=== PATIENT | female | born 1975 | race Caucasian/White ===

== ENCOUNTER 2017-06-13 08:41 | Day surgery (SDC) | payer OTHER ==
[~2017-06-13] VITALS: Ht 167.6 cm; Wt 54.5 kg
[~2017-06-13 08:41] MED LIST: ALBU8I INH; BACL20TA PO; IBUP800T23 PO
[2017-06-13] MEDS ORDERED: IOHEXOL 300 MG/ML 50 ML BTL (for RAD DIAG) OTHER ONE (08:42)
[2017-06-13 08:59] VITALS: BP 122/72; PULSE 73; RESP 20; TEMP 97.9; O2SAT 99
[2017-06-13] MEDS ORDERED: CETI10CA3 PO (09:14)
[2017-06-13] MEDS ORDERED: BACL10TA PO (09:14)
[2017-06-13] MEDS ORDERED: IBUP1TAB7 PO (09:14)
[2017-06-13 11:40] VITALS: BP 120/57; PULSE 51; RESP 18; O2SAT 96
[2017-06-13 11:55] VITALS: BP 110/65; PULSE 64; RESP 16; O2SAT 97
--- NOTE | 2017-06-13 13:45 | RADRPT ---
EXAM DATE/TIME: 06/13/2017 11:29 [facility] COMPARISON: FISTULAGRAM, June 13, 2017, 10:57. INDICATIONS : Post sinugram to evaluate sinus tract at base of incision, evaluate for sinus tract infection IV CONTRAST: 10 cc Omnipaque 300 (iohexol) IV RADIATION DOSE: 11.21 CTDIvol (mGy) MEDICAL HISTORY : None SURGICAL HISTORY : Thoracic spine surgery ENCOUNTER: Initial ACUITY: 1 day PAIN SCALE: 6/10 LOCATION: Thoracic spine TECHNIQUE: Volumetric scanning of the thoracic spine was performed. Multiplanar reconstructions in the sagittal , coronal and oblique axial planes were performed. Using automated exposure control and adjustment o f the mA and/or kV according to patient size, radiation dose was kept as low as reasonably achievable to obtain optimal diagnostic quality images. DICOM format image data is available electronically fo r review and comparison. FINDINGS: Thoracic spine CT was performed following sinogram injection which was performed under fluoroscopic o bservation in special procedures. The patient has undergone previous parents and right placement with rods extending from the believe is the T4 level down into the lumbar spine. There is slight right co nvex kyphoscoliosis through the region of bienvenido fixation. No evidence of fracture or destructive proces s. The bony canal is widely patent. The contrast injected tracks from the lumbar midline at the inferior aspect of the patient's prior vega rgical incision up into the thoracic region into the left paramedian intramuscular tissues and extend s directly to the post of the second from the top sublaminar hook attached to the left-sided bienvenido at w hat I believe is the T6 level. There is no specific suspicious bony finding at this location and I do not see any extension of injected contrast into the canal. CONCLUSION: Draining sinus tract communicates with previous thoracic fusion hardware as described. Please also re alicia to fistulogram report same date. Blaze Murillo MD on June 13, 2017 at 13:28 Board Certified Radiologist. This report was verified electronically.
--- NOTE | 2017-06-13 13:49 | RADRPT ---
EXAM DATE/TIME: 06/13/2017 10:57 [facility] COMPARISON: No previous studies available for comparison. INDICATIONS : Patient presents with thoracic subcutaneous skin infection in need of contrast injection for further evaluation. MEDICAL HISTORY : Scoliosis DJD SURGICAL HISTORY : Thoracic fusion Hysterectomy ENCOUNTER: Initial ACUITY: 3 months PAIN SCORE: 0/10 LOCATION: N/A FLUORO TIME: 3.9 minutes IMAGE SERIES: 5 CONTRAST: 10 cc Omni 300 TECH NOTE: Patient was transferred post case to CT for further imaging study.ERMA NIEVES MR#:[id number] DOB Exam Dt/Desc: June 13, 2017FISTULAGRAM PROCEDURE : 1. Fistulagram. The risks, benefits and alternatives to the procedure were explained and verbal and written consent w as obtained. The site was prepped in sterile fashion. Full sterile technique was used, including ca p, mask, sterile gloves and gown and a large sterile sheet. Hand hygiene and 2% chlorhexidine and/or betadine/alcohol prep was utilized per protocol for cutaneous antisepsis. The skin and subcutaneous tissues were infiltrated with local anesthetic solution. Under direct fluoroscopic observation, a sinus tract in the lumbar midline at the inferior most aspec t of the patient's previous back incision was injected with Omnipaque-300 contrast. The contrast flow s through a thin cavity up into the thoracic region and terminates at the level of the post of the se cond highest sublaminar hook on the left side. CONCLUSION: Thoracolumbar spine sinus tract communicates to the patient's Daniels bienvenido hardware as described Blaze Murillo MD on June 13, 2017 at 13:45 Board Certified Radiologist. This report was verified electronically.
== END 2017-06-13 12:05 | disposition home or self-care (01) ==
LOC: HRAD 08:41 → HRIP 08:42 → HRAD 12:05
PROVIDERS: ATTEND Orthopaedic Surgery Orthopaedic Surgery of the Spine
DX: L08.9 Local infection of the skin and subcutaneous tissue, unspecified (principal); M41.9 Scoliosis, unspecified; Z98.1 Arthrodesis status; M19.90 Unspecified osteoarthritis, unspecified site
CPT/HCPCS: 20500; 72129; 76080; Q9967

== ENCOUNTER 2017-07-12 08:44 | Inpatient (IN) | payer OTHER ==
[~2017-07-12] VITALS: Ht 167.6 cm; Wt 56.8 kg
[~2017-07-12 08:44] MED LIST changes: -ALBU8I INH; +BACL10TA PO; -BACL20TA PO; +CETI10CA3 PO; +IBUP1TAB7 PO; -IBUP800T23 PO
[2017-07-12] MEDS ORDERED: CHLORHEXIDINE GLUCONATE 2 % 1 PACK (2 CLOTHS) TOPICAL PRN (09:30)
[2017-07-12] MEDS ORDERED: LACTATED RINGER'S 1000 ML IV PRN (09:30)
[2017-07-12] MEDS ORDERED: SODIUM CHLORID 0.9% 500 ML IV PRN (09:30)
[2017-07-12] MEDS ORDERED: CHLORHEXIDINE GLUCONATE 4% SOLN 120 ML BTL TOPICAL SCH (09:30)
[2017-07-12] MEDS ORDERED: POVIDONE IODINE 5% (ANTISEPSIS KIT) 4 APPLICATIONS EACH NARE PRN (09:30)
[2017-07-12] MEDS ORDERED: CEFAZOLIN INJ 2,000 MG in SODIUM CHLORIDE 0.9% INJ 100 ML IV SCH (09:30)
[2017-07-12] MEDS ORDERED: METOPROLOL TARTRATE 25 MG TAB PO PRN (09:30)
[2017-07-12] MEDS ORDERED: GLYCOPYRROLATE 1 MG/5 ML SYRINGE IV PUSH ONE (12:00)
[2017-07-12] MEDS ORDERED: DEXAMETHASONE SOD PHOS 4 MG/ML VIAL IV ONE (12:00)
[2017-07-12] MEDS ORDERED: ROCURONIUM INJ 50 MG/5 ML SYRINGE IV PUSH ONE (12:00)
[2017-07-12] MEDS ORDERED: ONDANSETRON HCL 4 MG/2 ML VIAL IV ONE (12:00)
[2017-07-12] MEDS ORDERED: LIDOCAINE HCL 1% PF 5 ML SYRINGE OTHER ONE (12:00)
[2017-07-12] MEDS ORDERED: NEOSTIGMINE 5 MG/5 ML SYRINGE IV PUSH ONE (12:00)
[2017-07-12] MEDS ORDERED: LACTATED RINGER'S 1000 ML INJ 1,000 ML IV ONE (12:00)
[2017-07-12] MEDS ORDERED: PROPOFOL 200 MG/20 ML AMP IV ONE (12:00)
[2017-07-12] MEDS ORDERED: VANCOMYCIN HCL 1000 MG VIAL ONE (12:45)
[2017-07-12] MEDS ORDERED: GELFOAM SIZE 100 ONE (12:46)
[2017-07-12] MEDS ORDERED: TOBRAMYCIN 1200 MG VIAL (for ortho/sterile core) OTHER ONE (12:46)
[2017-07-12] MEDS ORDERED: GENTAMICIN SULFATE 80 MG/2 ML VIAL ONE (12:46)
[2017-07-12] MEDS ORDERED: THROMBIN (TOPICAL) 5,000 UNIT VIAL ONE (12:46)
[2017-07-12] MEDS ORDERED: ceFAZolin INJ 1,000 MG VIAL ONE (12:46)
[2017-07-12] MEDS ORDERED: MIDAZOLAM HCL 2 MG/2 ML VIAL ONE (15:12)
[2017-07-12] MEDS ORDERED: DO NOT ADM ANY ANTICOAGULANT DRUGS PRN (16:05)
--- NOTE | 2017-07-12 16:06 | PD.OP ---
cc: Mary Sánchez MD Operative Report Date of Surgery: Jul 12, 2017 Preoperative Diagnosis: Infected retained posterior thoracic hardware Postoperative Diagnosis: Same Procedure: 1. Irrigation and debridement posterior thoracic spine 2. Removal of posterior segmental hardware 3. Placement of dissolvable antibiotic beads Anesthesia: Gen. Surgeon: Mary Sánchez Video Production Intern(s): None Operation and Findings: EBL: 300 cc Complications: None Specimens: Multiple cultures sent to microbiology Indications for procedure: Patient is a 42-year-old female who underwent selective posterior thoracic fusion for A obvious approximately 19 years previously. Postoperatively patient did very well without any significant complications. Patient presented to my office probably 1 month ago with a small draining sinus near the inferior aspect of her thoracic incision. An attempt at nonoperative management was made with oral antibiotics and appropriate wound care. Initially, the wound did close however within a week it reopened. Imaging demonstrated connection of the draining sinus with posterior thoracic hardware. Recommendation for removal of posterior thoracic hardware and irrigation and debridement was made to try to eradicate the infection. Risks, benefits, alternatives were discussed. Risks of surgery including but not limited to: Persistent infection, recurrent scoliosis with progression, possible neurologic injury including possible paralysis, spinal fluid leak, possible need for further surgery, and other unforeseen complications were all discussed with the patient. At this time she has consented to the procedure. Description of procedure: Patient was brought back to the operating room and general anesthesia then ensued. Patient was then positioned prone on the operating room table with all bony prominences well-padded. Preoperative antibiosis were held in attempt to obtain intraoperative cultures. Patient was prepped and draped in standard sterile fashion. A timeout was performed to identify correct patient, site, and procedure to be performed. The previous thoracic incision from approximately T4 down to T12 was opened with sharp dissection through the skin and subcutaneous tissue. Electrocautery was used to gain hemostasis. At this time there was a superficial subcutaneous pocket above the level of fascia just to the left side at the caudal aspect of the incision consistent with a draining sinus. This was cultured. The fascia was then split in midline. This revealed a deep pocket of tissue consistent with draining sinus and concern for infection and this tissue was sent for culture along with fluid. Antibiotics were then administered. Careful dissection was performed down to the cross-links both towards the cranial and caudal aspect of the incision. This allowed me to follow the cross-links to the lateral based rods. The fibrous tissue along with the muscle was then elevated to allow exposure of the rods and all of the hooks. The cross-links were then removed. The set screws for the folks were then removed, this included all 6. The rods were then able to be slowly worked cranially and caudally to allow the most cranial and caudal hooks on both sides to be removed. This then allowed the rods to carefully be removed from the remaining folks and cables. The remaining right-sided hooks were then removed. In total, 6 hooks were removed and 2 cross-links and 2 rods. I did discuss with the patient prior to surgery the likelihood that I would leave her sublaminar cables as cutting these and removing them places her at significantly higher risk of dural injury or neurologic injury. I did explain to the patient that this does place her at slightly higher risk of persistent infection, however the risks of removing these appear to outweigh the benefits. At this time, the tissue was curetted to get down to healthy bleeding tissue and rongeur was used to remove the debris. Over 3 L of normal saline laden with gentamicin was used to irrigate the subcutaneous tissue, muscle, fascia and down to bone. Stimulan beads were then created on the back table with the addition of vancomycin and tobramycin powder and allowed to fully cure. After approximately 15 minutes, the beads were hardened and placed into the wound both below the fascia and in the subcutaneous pocket that had been formed from the abscess. A medium Hemovac was then placed. The fascia was then closed with #1 PDS suture. The subcutaneous tissue was then closed with 3-0 PDS suture and the skin closed with nylon suture. Sterile dressings were then applied. Patient was awoken from general anesthesia without complication. Disposition: Patient will be kept overnight to allow cultures to be examined. She will require IV antibiotics for a period of time given the infection she did have. I will ask ID to evaluate the patient and follow cultures with me to help determine appropriate antibiotic management. Mary Sánchez MD Jul 12, 2017 16:06
[2017-07-12] MEDS ORDERED: diphenhydrAMINE HCL 25 MG CAP PO PRN (16:15)
[2017-07-12] MEDS ORDERED: Post-op Orders (for Pharmacy) XX ONE ×2 (16:15)
[2017-07-12] MEDS ORDERED: ONDANSETRON HCL 4 MG/2 ML VIAL IV PUSH PRN (16:15)
[2017-07-12] MEDS ORDERED: oxyCODONE/ACETAMINOPHEN 5 MG/325 MG TAB PO PRN (16:15)
[2017-07-12] MEDS ORDERED: BISACODYL 10 MG SUPP RECTAL PRN (16:15)
[2017-07-12] MEDS ORDERED: SOD PHOSPHATE/SOD BIPHOSPHATE (ADULT) ENEMA 133ML PR PRN (16:15)
[2017-07-12] MEDS ORDERED: Vancomycin Consult Pharmacy 1 EA OTHER SCH (16:15)
[2017-07-12] MEDS ORDERED: SODIUM CHLORIDE 0.9% FLUSH 10 ML FLUSH IV FLUSH PRN (16:15)
[2017-07-12] MEDS ORDERED: *morphine SULFATE 8 MG/ML PERIprocedure ONLY ONE (16:16)
[2017-07-12] MEDS ORDERED: *PROMETHAZINE 25 MG/ML VIAL PERIprocedural use ONLY ONE (16:57)
[2017-07-12 18:00] VITALS: BP 123/58; PULSE 70; RESP 18; TEMP 97.2; O2SAT 98
[2017-07-12] MEDS: oxyCODONE/ACETAMINOPHEN 5 MG/325 MG TAB PO PRN ×2 (18:08→22:45)
[2017-07-12] MEDS ORDERED: MORPHINE SULFATE 4 MG/ML INJ ONE (19:18)
[2017-07-12 19:30] VITALS: BP 106/68; PULSE 64; RESP 16; TEMP 97.3; O2SAT 98
--- NOTE | 2017-07-12 20:07 | RADRPT ---
EXAM DATE/TIME: 07/12/2017 14:57 [facility] COMPARISON: SPINE THORACIC AP/LAT/SW (3VW), September 07, 2009, 0:48. INDICATIONS : Hardware removal of the thoracic spine. MEDICAL HISTORY : None. SURGICAL HISTORY : Daniels bienvenido. ENCOUNTER: Initial ACUITY: 1 day PAIN SCORE: Non-responsive. LOCATION: Thoracic spine. FINDINGS: The previously seen stabilization rods have been removed. There are 3 cerclage wires seen at the lowe r lateral thoracic spine that are still seen. CONCLUSION: Status post removal of the long stabilization rods. Blaze Amaya MD on July 12, 2017 at 20:03 Board Certified Radiologist. This report was verified electronically.
[2017-07-12] MEDS: SODIUM CHLORIDE 0.9% FLUSH 10 ML FLUSH IV FLUSH SCH (20:31)
[2017-07-12] MEDS: MORPHINE SULFATE 2 MG/ML INJ IV PUSH PRN ×2 (20:31→23:57)
[2017-07-12] MEDS ORDERED: SODIUM CHLORIDE 0.9% FLUSH 10 ML FLUSH IV FLUSH SCH (21:00)
[2017-07-12] MEDS: CYCLOBENZAPRINE HCL 10 MG TAB PO PRN (22:45)
[2017-07-13] VITALS (7 sets, daily range): BP systolic 96–117; BP diastolic 51–58; PULSE 52–80; RESP 16–18; TEMP 97.7–98.6; O2SAT 96–99
[2017-07-13] MEDS ORDERED: VANCOMYCIN INJ 1,000 MG in SODIUM CHLOR 0.9% 250 ML INJ 250 ML IV SCH (02:00)
[2017-07-13] MEDS: oxyCODONE/ACETAMINOPHEN 5 MG/325 MG TAB PO PRN ×5 (02:48→21:53)
[2017-07-13] MEDS: MORPHINE SULFATE 2 MG/ML INJ IV PUSH PRN ×6 (04:30→21:01)
[2017-07-13 07:24] LABS: HEMATOCRIT 36.9 % (35.0-46.0); HEMOGLOBIN 12.2 GM/DL (11.6-15.3)
--- NOTE | 2017-07-13 07:45 | PD.ORT.PN ---
Subjective Subjective Remarks Patient resting currently this morning. It reports back pain and occasional muscle spasms. Reports pain is relatively well controlled with Percocet and Flexeril Objective Vitals Vital Signs Date Time Temp Pulse Resp B/P (MAP) Pulse Ox O2 Delivery O2 Flow Rate FiO2 07/13/17 05:10 98.2 53 16 106/54 (71) 98 07/13/17 00:35 97.7 72 16 96/54 (68) 99 07/12/17 19:30 97.3 64 16 106/68 (81) 98 07/12/17 18:00 97.2 70 18 123/58 (79) 98 07/12/17 17:30 97.9 55 12 112/56 (74) 100 Nasal Cannula 2 07/12/17 17:15 82 16 113/56 (75) 95 07/12/17 17:00 71 19 114/57 (76) 100 07/12/17 16:45 48 13 120/59 (79) 100 07/12/17 16:30 53 16 114/57 (76) 99 07/12/17 16:15 67 16 129/67 (87) 100 Nasal Cannula 2 07/12/17 16:06 97.6 78 16 120/69 (86) 100 Nasal Cannula 2 07/12/17 09:45 98.5 54 20 122/66 (84) 98 I/O 07/12/17 07/12/17 07/12/17 07/13/17 07/13/17 07/13/17 07:00 15:00 23:00 07:00 15:00 23:00 Intake Total 1500 ml 720 ml Output Total 420 ml 10 ml Balance 1080 ml 710 ml Intake Oral 720 ml Other 1500 ml Output Drainage Total 120 ml 10 ml Estimated Blood Loss 300 ml # Voids 5 # Bowel Movements 0 Result Diagram: 07/13/17 0623 Objective Remarks awake, alert, no acute distress Thoracic spine: Dressing in place without any significant drainage. Drain remains intact. Bilateral lower extremity is: 5 out of 5 strength throughout. Sensation intact. Brisk cap refill. Patient has been out of bed ambulating to the restroom Assessment & Plan Assessment and Plan 42-year-old female postop day 1 status post irrigation and debridement with removal of posterior thoracic hardware for infection 1. Encourage mobilization and out of bed as tolerated. Patient does not require bracing. Avoid significant bending, lifting or twisting 2. Intraoperative cultures pending. Infectious disease has been consult. Patient will require antibiotic management for infection. 3. Physical therapy for mobilization 4. Patient will likely be able to go home with home health pending cultures and antibiotic determination. Mary Sánchez MD Jul 13, 2017 07:45
[2017-07-13 07:48] LABS: CREATININE 0.53 MG/DL (0.50-1.00)
[2017-07-13] MEDS: SODIUM CHLORIDE 0.9% FLUSH 10 ML FLUSH IV FLUSH SCH ×2 (08:01→21:00)
[2017-07-13] MEDS: CYCLOBENZAPRINE HCL 10 MG TAB PO PRN ×2 (08:05→16:51)
[2017-07-13] MEDS: VANCOMYCIN INJ 1,250 MG in SODIUM CHLOR 0.9% 250 ML INJ 250 ML IV SCH (12:40)
[2017-07-13] MEDS ORDERED: Vancomycin Consult Pharmacy 1 EA OTHER SCH (14:15)
--- NOTE | 2017-07-13 14:29 | PD.CONS ---
History of Present Illness Service Infectious disease Consult Requested By Dr Sánchez Reason for Consult Evaluate patient with sinus tract, has hardware, status post surgery for scoliosis Primary Care Physician No Primary Care Physician Diagnoses: History of Present Illness Patient seen and examined. Records reviewed. Patient is a 42-year-old female, admitted to the hospital for surgery on her back. Patient had surgery on her back about 18 years ago for scoliosis. She has rods since close in place. She was doing well up until around February 2017 when she developed a swollen lump in the lower most portion of her scar. It spontaneously drained around the end of March, and sealed up, but she developed the same swelling again. Her mom who is a nurse had looked at the area, and it was never red, or warm. It was not really hurting, and she has not had any problem with bad back pain. Since then it had episodes of drainage and closure, and every time it would close she would have an exercise swelling in the same area. She went to [place], and she was given clindamycin at that time. She made an appointment to see Dr. Sánchez, and her antibiotic was changed to doxycycline. She had one episode where she was lanced, and a culture was sent dated May 09 and the culture came back negative. Patient however was on doxycycline at that time. She thinks that that was the last time she had any antibiotic. There was another culture done towards the end of May and at that time she has been off antibiotics for at least 2 weeks, and the cultures came back negative. She also had some imaging studies, as well as a fistulogram and it showed that the tract To the distal portion of her hardware in the back. During all this time she denies any fever or chills or sweats. She has not had any GI or any problem. She has not had any dental procedure done or any other procedure done. She was brought into the hospital for surgery, with debridement and removal of the hardware. She had a CBC done as an outpatient and her WBC was 11,000. Infectious disease consultation has been requested to evaluate the patient and assist with management. Review of Systems Constitutional: DENIES: Fever, Chills, Night Sweats Eyes: DENIES: Eye pain Ears, nose, mouth, throat: DENIES: Nasal discharge, Oral lesions, Throat pain, Running Nose, Sinus Pain, Toothache Respiratory: DENIES: Cough, Sputum production, Shortness of breath Cardiovascular: DENIES: Chest pain, Palpitations, Dyspnea on Exertion, Lower Extremity Edema Gastrointestinal: DENIES: Abdominal pain, Nausea, Vomiting, Difficulty Swallowing Genitourinary: DENIES: Urinary frequency, Urgency, Dysuria Musculoskeletal: COMPLAINS OF: Back pain, DENIES: Joint pain, Joint Swelling Integumentary: DENIES: Pruritus, Rash Neurologic: DENIES: Localized weakness Psychiatric: DENIES: Hallucinations Past Family Social History Allergies: Coded Allergies: Sulfa (Sulfonamide Antibiotics) (Verified Allergy, Intermediate, Hives, ) Hives on left hand nabumetone (Verified Allergy, Intermediate, FEET SWELL, 07/12/17) acetaminophen (Verified Adverse Reaction, Intermediate, N&V, 07/12/17) hydrocodone (Verified Adverse Reaction, Intermediate, N&V, 07/12/17) Past Medical History Scoliosis Mitral valve prolapse Endometriosis Fibroid tumors Past Surgical History Hysterectomy, and one of her ovaries was removed Back surgery Right knee tendon repair Active Ordered Medications Current Medications Medications (Trade) Dose Ordered Sig/Liliane Route Start Time Stop Time Status Last Admin Lactated Ringer's 1,000 ml @ 30 mls/hr Q24H PRN IV 07/12/17 09:30 07/15/17 09:29 Sodium Chloride 500 ml @ 30 mls/hr [id number] PRN IV 07/12/17 09:30 07/15/17 09:29 (Lopressor) 25 mg SENIOR OFFICE ASSISTANT PRN PO 07/12/17 09:30 07/15/17 09:29 (Betadine 5% Antisepsis Kit) 1 applic SENIOR OFFICE ASSISTANT PRN EACH NARE 07/12/17 09:30 07/15/17 09:29 (Chlorhexidine 2% Cloth) 3 pack SENIOR OFFICE ASSISTANT PRN TOPICAL 07/12/17 09:30 07/15/17 09:29 (Hibiclens 4% Top Soln) 1 applic ONCE TOPICAL 07/12/17 09:30 07/15/17 09:29 Cefazolin Sodium 2000 mg/Sodium Chloride 120 ml @ 240 mls/hr SENIOR OFFICE ASSISTANT IV 07/12/17 09:30 07/15/17 09:29 (Morphine Inj) 2 mg Q3H PRN IV PUSH 07/12/17 17:15 07/13/17 11:48 (Percocet 5-325 Mg) 1 tab Q4H PRN PO 07/12/17 16:15 07/13/17 12:39 (Percocet 5-325 Mg) 2 tab Q6H PRN PO 07/12/17 16:15 (Zofran Inj) 4 mg Q6H PRN IV PUSH 07/12/17 16:15 (Colace) 100 mg BID PO 07/13/17 21:00 (Dulcolax Supp) 10 mg DAILY PRN RECTAL 07/12/17 16:15 (Fleets Enema (Adult)) 133 ml DAILY PRN NC 07/12/17 16:15 (NS Flush) 2 ml UNSCH PRN IV FLUSH 07/12/17 16:15 (NS Flush) 2 ml BID IV FLUSH 07/12/17 21:00 07/13/17 08:01 Pharmacy Profile Note 0 ml @ 0 mls/hr UNSCH OTHER 07/12/17 16:15 (Benadryl) 25 mg Q6H PRN PO 07/12/17 16:15 (Flexeril) 10 mg Q8H PRN PO 07/12/17 16:15 07/13/17 08:05 Miscellaneous Information ALL NURSING DEPARTME... UNSCH PRN .XX 07/12/17 16:05 07/13/17 16:04 Vancomycin HCl 1250 mg/Sodium Chloride 262.5 ml @ 250 mls/hr Q12H IV 07/13/17 14:00 07/13/17 12:40 Miscellaneous Information SPECIFIC LAB TO BE DRAWN:VANCOMY... ONCE ONCE .XX 07/15/17 01:45 07/15/17 01:46 Family History Noncontributory Social History Smokes one pack per day of cigarettes No alcohol abuse No illicit drugs Physical Exam Vital Signs Vital Signs Date Time Temp Pulse Resp B/P (MAP) Pulse Ox O2 Delivery O2 Flow Rate FiO2 07/13/17 11:37 98.0 61 18 116/54 (74) 98 07/13/17 07:44 98.2 52 18 100/55 (70) 97 07/13/17 05:10 98.2 53 16 106/54 (71) 98 07/13/17 00:35 97.7 72 16 96/54 (68) 99 07/12/17 19:30 97.3 64 16 106/68 (81) 98 07/12/17 18:00 97.2 70 18 123/58 (79) 98 07/12/17 17:30 97.9 55 12 112/56 (74) 100 Nasal Cannula 2 07/12/17 17:15 82 16 113/56 (75) 95 07/12/17 17:00 71 19 114/57 (76) 100 07/12/17 16:45 48 13 120/59 (79) 100 07/12/17 16:30 53 16 114/57 (76) 99 07/12/17 16:15 67 16 129/67 (87) 100 Nasal Cannula 2 07/12/17 16:06 97.6 78 16 120/69 (86) 100 Nasal Cannula 2 Physical Exam GENERAL: Patient is a well-nourished, well-developed female, awake and alert , not in respiratory distress. SKIN: Cool and dry. No generalized rash, no ecchymoses and no evidence of embolic lesions. HEAD: Atraumatic. Normocephalic. No temporal wasting, or tenderness. EYES: [place] conjunctiva. No petechia or hemorrhage. Pupils equal, round and reactive to light. Extraocular movements full and intact. No scleral icterus. No injection or drainage. EARS, NOSE AND THROAT: Nose without bleeding or purulent nasal discharge. No sinus tenderness. Mucous membranes pink and moist. No oral lesions noted. No exudate. No oral thrush. NECK: Trachea midline. Supple and not tender, no meningeal signs CARDIOVASCULAR: Regular rate and rhythm. No murmurs, rubs or gallops heard RESPIRATORY: Clear to auscultation. Breath sounds equal bilaterally. No rales , wheezing or rhonchi ABDOMEN: Soft, non-tender, nondistended. Bowel sounds present and normoactive. No guarding. No rebound. No organomegaly. EXTREMITIES: No clubbing, cyanosis, or edema.No joint effusion, has good ROM. No calf tenderness. Well perfused and warm. BACK: Dressing in the back, with breakthrough blood in lowermost portion of the incision NEUROLOGICAL: Awake and alert. Cranial nerves grossly intact. Motor grossly within normal limits. PSYCHIATRIC: Normal affect, calm and cooperative. LINE: No evidence of infection Laboratory Laboratory Tests Test 07/13/17 06:23 07/13/17 06:25 Hemoglobin 12.2 Hematocrit 36.9 Creatinine 0.53 Estimat Glomerular Filtration Rate 126 Date/Time Source Procedure Growth Status 07/12/17 15:00 Wound Other Fungal Smear - Final NO FUNGAL ELEMENTS SEEN. Resulted 07/12/17 15:00 Wound Other Fungal Culture Pending Resulted Result Diagram: 07/13/1762207/13/17 0625 Imaging Last Impressions Thoracic Spine X-Ray 07/12/17 0000 Signed Impressions: Service Date/Time: Wednesday, July 12, 2017 14:57 - CONCLUSION: Status post removal of the long stabilization rods. Blaze Amaya MD Assessment and Plan Assessment and Plan IMPRESSION Sinus tract connects to the thoracic spine hardware, C/W infection - S/P removal of hardware; still with cables in place - prior C/S have been negative one done while she was on Abx, another one done off Abx; no C/S prior to start of any Abx - has been on Abx on and off for a while (clindamycin, Doxycyline) - usually due to GPC (Staph and Strep), ?unusual pathogen; C/S negative due to partial treatment of infection S/P debridement and removal of hardware and placement of some Abx beads RECOMMENDATION ESR and CRP, CMP Follow C/S If C./S (+), adjust Abx based on C/S If C/S negative: Rx for most common pathogen with IV Vanco +/- Cipro Follow fungal and AFB C/S Will refer to Dr Abdullahi when she gets D/C for ID follow-up Monitor progress I will follow along with you Thank you for this consultation Discussed Condition With Explained plan to the patient Raquel Wells MD Jul 13, 2017 14:29
[2017-07-13] MEDS: DOCUSATE SODIUM 100 MG CAP PO SCH (21:01)
[2017-07-14 01:50] VITALS: BP 114/55
[2017-07-14] MEDS: VANCOMYCIN INJ 1,250 MG in SODIUM CHLOR 0.9% 250 ML INJ 250 ML IV SCH ×2 (01:53→14:21)
[2017-07-14] MEDS: MORPHINE SULFATE 2 MG/ML INJ IV PUSH PRN ×6 (01:54→23:40)
[2017-07-14] MEDS: DOCUSATE SODIUM 100 MG CAP PO SCH ×2 (07:15→20:47)
[2017-07-14] MEDS: oxyCODONE/ACETAMINOPHEN 5 MG/325 MG TAB PO PRN ×4 (07:15→20:47)
[2017-07-14] MEDS: CYCLOBENZAPRINE HCL 10 MG TAB PO PRN ×3 (07:15→23:40)
[2017-07-14] MEDS: SODIUM CHLORIDE 0.9% FLUSH 10 ML FLUSH IV FLUSH SCH ×2 (07:17→20:53)
[2017-07-14 07:39] LABS: ALBUMIN 2.8 GM/DL (3.4-5.0); ALT (GPT) 17 U/L (10-53); AST (GOT) 15 U/L (15-37); BICARBONATE 30.9 MEQ/L (21.0-32.0); BLOOD UREA NITROGEN 10 MG/DL (7-18); C-REACTIVE PROTEIN 0.74 MG/DL (0.00-0.30); CALCIUM 8.8 MG/DL (8.5-10.1); CHLORIDE 103 MEQ/L (98-107); CREATININE 0.56 MG/DL (0.50-1.00); GLOMERULAR FILTRATION RATE 118 ML/MIN (>89); GLUCOSE,RANDOM 86 MG/DL (74-106); SODIUM (NA) 140 MEQ/L (136-145)
[2017-07-14 07:41] LABS: ALKALINE PHOSPHATASE 78 U/L (45-117); TOTAL BILIRUBIN ADULT 0.3 MG/DL (0.2-1.0); TOTAL PROTEIN 6.2 GM/DL (6.4-8.2)
[2017-07-14 08:00] VITALS: BP 118/56; PULSE 62; RESP 19; TEMP 98.4; O2SAT 98
[2017-07-14] MEDS: SODIUM CHLORIDE 0.9% FLUSH 10 ML FLUSH IV FLUSH PRN ×4 (08:46→16:05)
[2017-07-14 11:52] VITALS: BP 113/63; PULSE 74; RESP 18; TEMP 98.2; O2SAT 98
--- NOTE | 2017-07-14 15:21 | PD.ORT.PN ---
Subjective Subjective Remarks Patient resting comfortably. States her pain is relatively well controlled. Objective Vitals Vital Signs Date Time Temp Pulse Resp B/P (MAP) Pulse Ox O2 Delivery O2 Flow Rate FiO2 07/14/17 11:52 98.2 74 18 113/63 (80) 98 07/14/17 08:00 98.4 62 19 118/56 (76) 98 07/14/17 01:50 114/55 (74) 07/13/17 23:36 98.2 55 17 98/53 (68) 96 07/13/17 20:00 98.2 80 18 117/58 (77) 98 07/13/17 16:00 98.6 68 18 107/51 (69) 98 I/O 07/13/17 07/13/17 07/13/17 07/14/17 07/14/17 07/14/17 07:00 15:00 23:00 07:00 15:00 23:00 Intake Total 720 ml 1225.5 ml 480 ml Output Total 10 ml 20 ml Balance 710 ml 1205.5 ml 480 ml Intake Oral 720 ml 960 ml 480 ml IV Total 265.5 ml Output Drainage Total 10 ml 20 ml # Voids 5 3 2 # Bowel Movements 0 0 0 Result Diagram: 07/13/17 0623 07/14/17 0630 Objective Remarks awake, alert, no acute distress Thoracic spine: Dressing in place without any significant drainage. Bilateral lower extremity is: 5 out of 5 strength throughout. Sensation intact. Brisk cap refill. Patient has been out of bed ambulating to the restroom Assessment & Plan Assessment and Plan 42-year-old female postop day 2 status post irrigation and debridement with removal of posterior thoracic hardware for infection 1. Encourage mobilization and out of bed as tolerated. Patient does not require bracing. Avoid significant bending, lifting or twisting 2. Intraoperative cultures pending. Infectious disease has been consulted. Patient will require antibiotic management for infection. Appreciate their recommendations. 3. Physical therapy for mobilization 4. Patient will likely be able to go home with home health pending cultures and antibiotic determination. Mary Sánchez MD Jul 14, 2017 15:21
[2017-07-14 16:00] VITALS: BP 123/55; PULSE 76; RESP 19; TEMP 98.2; O2SAT 100
[2017-07-14 18:35] VITALS: BP 105/56; PULSE 68; RESP 15; TEMP 97.7; O2SAT 98
[2017-07-15] VITALS: BP 102/59; PULSE 62; RESP 18; TEMP 98.5; O2SAT 98
[2017-07-15] MEDS: oxyCODONE/ACETAMINOPHEN 5 MG/325 MG TAB PO PRN ×5 (00:48→17:05)
[2017-07-15] MEDS ORDERED: PHARMACY ORDERED LAB ONE (01:45)
[2017-07-15] MEDS: MORPHINE SULFATE 2 MG/ML INJ IV PUSH PRN ×5 (02:30→19:30)
[2017-07-15] MEDS: VANCOMYCIN INJ 1,250 MG in SODIUM CHLOR 0.9% 250 ML INJ 250 ML IV SCH (02:36)
[2017-07-15 03:12] LABS: CREATININE 0.55 MG/DL (0.50-1.00); VANCOMYCIN TROUGH 7.6 MCG/ML (5.0-10.0)
[2017-07-15] MEDS ORDERED: MAGNESIUM CITRATE SOLN 300 ML BTL PO PRN (07:00)
[2017-07-15 08:00] VITALS: BP 96/54; PULSE 65; RESP 18; TEMP 98.1; O2SAT 98
[2017-07-15] MEDS: CYCLOBENZAPRINE HCL 10 MG TAB PO PRN ×2 (08:19→17:05)
[2017-07-15] MEDS: DOCUSATE SODIUM 100 MG CAP PO SCH (08:19)
[2017-07-15] MEDS: SODIUM CHLORIDE 0.9% FLUSH 10 ML FLUSH IV FLUSH SCH (08:24)
[2017-07-15] MEDS: SODIUM CHLORIDE 0.9% FLUSH 10 ML FLUSH IV FLUSH PRN ×2 (10:27→13:33)
[2017-07-15] MEDS: VANCOMYCIN 1,000 MG/NS 250 ML IV SCH ×4 (10:28→17:04)
--- NOTE | 2017-07-15 11:43 | HHI.FF ---
cc: Eugenio Abdullahi MD Infusion Therapy Location of Infusion Therapy: [facility] IV Infusion Order Patient Information Patient Weight 56.8 kg Diagnosis: Diagnosis Infection thoracic spine, S/P removal of hardware Coded Allergies: Sulfa (Sulfonamide Antibiotics) (Verified Allergy, Intermediate, Hives, ) Hives on left hand nabumetone (Verified Allergy, Intermediate, FEET SWELL, 07/12/17) acetaminophen (Verified Adverse Reaction, Intermediate, N&V, 07/12/17) hydrocodone (Verified Adverse Reaction, Intermediate, N&V, 07/12/17) Administer Medication Vancomycin Vancomycin 1.75 gm IV q12h Stop Treatment: August 22, 2017 Additional Information Venous access: PICC Line Additional Instructions [x] Peripheral flush and dressing changes per protocol [x] Implanted port and central bottle line worker: * Implanted port: 10 ml Normal Saline followed by 5 ml Heparin 100 units/ml Heparin flush after each use and monthly to maintain. [] May leave port accessed during therapy. [] May leave peripheral site accessed for duration of therapy. [x] If patient has SOB or respiratory distress, check oxygen saturation. If less than 90% or clinical signs of respiratory distress, administer oxygen at 2 L/min. via nasal cannula and notify physician. [x] Anaphylaxis/Reaction orders: * Stop infusion. * Keep IV line open with saline flush. * Notify physician. * Monitor vital signs every 15 minutes until symptoms resolve. * Check Oxygen saturation; Oxygen at 2 L/min. via nasal cannula if less than 90% or clinical signs of respiratory distress. * Administer diphenhydramine (Benadryl) 25 mg IV STAT, (unless patient has received as pre-med). May repeat once, if necessary. * Solu-Cortef 250 mg IVP over 30-60 seconds, use 100 mg vials for each dissolution. * Epinephrine (1mg/1 ml) 0.3 mg subcutaneously or IVP now with any signs of respiratory distress. * Check with physician for new additional pre-med orders if patient is re- challenged or re-treated. [x] May remove PICC line when treatment complete, after confirming with Physician. [x] If the patient is admitted to the hospital, the ED, or transferred via [facility] , complete transfer form including medication reconciliation order sheet. Laboratory Tests Weekly Labs: CBC w/diff, Creatinine, Vancomycin Trough (Labs every Tuesday - copy to Dr Abdullahi, Dr Sánchez and sc) Additional Information Please instruct patient to make appointment with Dr Abdullahi [phone] for ID fup in 2-3 weeks Raquel Wells MD Jul 15, 2017 11:43
--- NOTE | 2017-07-15 11:56 | HHI.IDPN ---
Subjective Subjective Remarks Patient is a 42-year-old female, admitted to the hospital for surgery on her back. Patient had surgery on her back about 18 years ago for scoliosis. She has rods since close in place. She was doing well up until around February 2017 when she developed a swollen lump in the lower most portion of her scar. It spontaneously drained around the end of March, and sealed up, but she developed the same swelling again. Her mom who is a nurse had looked at the area, and it was never red, or warm. It was not really hurting, and she has not had any problem with bad back pain. Since then it had episodes of drainage and closure, and every time it would close she would have an exercise swelling in the same area. She went to [place], and she was given clindamycin at that time. She made an appointment to see Dr. Sánchez, and her antibiotic was changed to doxycycline. She had one episode where she was lanced, and a culture was sent dated May 09 and the culture came back negative. Patient however was on doxycycline at that time. She thinks that that was the last time she had any antibiotic. There was another culture done towards the end of May and at that time she has been off antibiotics for at least 2 weeks, and the cultures came back negative. She also had some imaging studies, as well as a fistulogram and it showed that the tract To the distal portion of her hardware in the back. During all this time she denies any fever or chills or sweats. She has not had any GI or any problem. She has not had any dental procedure done or any other procedure done. She was brought into the hospital for surgery, with debridement and removal of the hardware. She had a CBC done as an outpatient and her WBC was 11,000. Infectious disease consultation has been requested to evaluate the patient and assist with management. Notes reviewed [place] ok Pain better Routine C/S negative AFB and fungal stain negative ESR 11 CRP 0.74 Antibiotics Vancomycin Current Medications Medications (Trade) Dose Ordered Sig/Liliane Route Start Time Stop Time Status Last Admin (Morphine Inj) 2 mg Q3H PRN IV PUSH 07/12/17 17:15 07/15/17 10:25 (Percocet 5-325 Mg) 1 tab Q4H PRN PO 07/12/17 16:15 07/15/17 08:19 (Percocet 5-325 Mg) 2 tab Q6H PRN PO 07/12/17 16:15 (Zofran Inj) 4 mg Q6H PRN IV PUSH 07/12/17 16:15 07/15/17 10:35 (Colace) 100 mg BID PO 07/13/17 21:00 07/15/17 08:19 (Dulcolax Supp) 10 mg DAILY PRN RECTAL 07/12/17 16:15 (Fleets Enema (Adult)) 133 ml DAILY PRN WV 07/12/17 16:15 (NS Flush) 2 ml UNSCH PRN IV FLUSH 07/12/17 16:15 07/15/17 10:27 (NS Flush) 2 ml BID IV FLUSH 07/12/17 21:00 07/15/17 08:24 (Benadryl) 25 mg Q6H PRN PO 07/12/17 16:15 (Flexeril) 10 mg Q8H PRN PO 07/12/17 16:15 07/15/17 08:19 Pharmacy Profile Note 0 ml @ 0 mls/hr UNSCH OTHER 07/13/17 14:15 (Citroma Liq) 300 ml DAILY PRN PO 07/15/17 07:00 07/15/17 08:22 Vancomycin HCl 1000 mg/Sodium Chloride 250 ml @ 250 mls/hr Q8H IV 07/15/17 10:00 07/15/17 10:28 Miscellaneous Information SPECIFIC LAB TO BE DRAWN:VANCOMYCIN TROUGH DATE TO... ONCE ONCE .XX 07/16/17 09:45 07/16/17 09:46 Lines PIV Past Medical History Scoliosis Mitral valve prolapse Endometriosis Fibroid tumors Past Surgical History Hysterectomy, and one of her ovaries was removed Back surgery Right knee tendon repair Allergies: Coded Allergies: Sulfa (Sulfonamide Antibiotics) (Verified Allergy, Intermediate, Hives, ) Hives on left hand nabumetone (Verified Allergy, Intermediate, FEET SWELL, 07/12/17) acetaminophen (Verified Adverse Reaction, Intermediate, N&V, 07/12/17) hydrocodone (Verified Adverse Reaction, Intermediate, N&V, 07/12/17) Objective . Vital Signs Date Time Temp Pulse Resp B/P (MAP) Pulse Ox O2 Delivery O2 Flow Rate FiO2 07/15/17 08:00 98.1 65 18 96/54 (68) 98 07/15/17 00:00 98.5 62 18 102/59 (73) 98 07/14/17 18:35 97.7 68 15 105/56 (72) 98 07/14/17 16:00 98.2 76 19 123/55 (77) 100 07/14/17 11:52 98.2 74 18 113/63 (80) 98 . Laboratory Tests Test 07/14/17 06:30 Erythrocyte Sedimentation Rate 11 mm/hr Laboratory Tests Test 07/14/17 06:30 07/15/17 02:25 Blood Urea Nitrogen 10 MG/DL Creatinine 0.56 MG/DL 0.55 MG/DL Random Glucose 86 MG/DL Total Protein 6.2 GM/DL Albumin 2.8 GM/DL Calcium Level 8.8 MG/DL Alkaline Phosphatase 78 U/L Aspartate Amino Transf (AST/SGOT) 15 U/L Alanine Aminotransferase (ALT/SGPT) 17 U/L Total Bilirubin 0.3 MG/DL Sodium Level 140 MEQ/L Potassium Level 4.0 MEQ/L Chloride Level 103 MEQ/L Carbon Dioxide Level 30.9 MEQ/L Anion Gap 6 MEQ/L Estimat Glomerular Filtration Rate 118 ML/MIN 121 ML/MIN C-Reactive Protein 0.74 MG/DL Microbiology Date/Time Source Procedure Growth Status 07/12/17 15:00 Wound Other Fungal Smear - Final NO FUNGAL ELEMENTS SEEN. Resulted 07/12/17 15:00 Wound Other Fungal Culture Pending Resulted 07/12/17 15:00 Wound Other Acid Fast Stain - Final NO ACID FAST BACILLI SEEN Resulted 07/12/17 15:00 Wound Other Mycobacterial Culture Pending Resulted 07/12/17 15:00 Wound Other Gram Stain - Final Complete 07/12/17 15:00 Wound Other Wound Culture - Final NO GROWTH IN 72 HRS.--AEROBICALLY OR ... Complete 07/12/17 15:00 Wound Other Fungal Smear - Final NO FUNGAL ELEMENTS SEEN. Resulted 07/12/17 15:00 Wound Other Fungal Culture Pending Resulted 07/12/17 15:00 Wound Other Acid Fast Stain - Final NO ACID FAST BACILLI SEEN Resulted 07/12/17 15:00 Wound Other Mycobacterial Culture Pending Resulted 07/12/17 15:00 Wound Other Gram Stain - Final Complete 07/12/17 15:00 Wound Other Wound Culture - Final NO GROWTH IN 72 HRS.--AEROBICALLY OR ... Complete 07/12/17 15:00 Wound Other Fungal Smear - Final NO FUNGAL ELEMENTS SEEN. Resulted 07/12/17 15:00 Wound Other Fungal Culture Pending Resulted 07/12/17 15:00 Wound Other Acid Fast Stain - Final NO ACID FAST BACILLI SEEN Resulted 07/12/17 15:00 Wound Other Mycobacterial Culture Pending Resulted 07/12/17 15:00 Wound Other Gram Stain - Final Complete 07/12/17 15:00 Wound Other Wound Culture - Final NO GROWTH IN 72 HRS.--AEROBICALLY OR ... Complete Physical Exam GENERAL: awake and alert, not in respiratory distress. SKIN: Cool and dry. No generalized rash HEAD: Atraumatic. Normocephalic. No temporal wasting, or tenderness. EYES: [place] conjunctiva. No petechia or hemorrhage. Pupils equal, round and reactive to light. Extraocular movements full and intact. No scleral icterus. No injection or drainage. EARS, NOSE AND THROAT: Nose without bleeding or purulent nasal discharge. No sinus tenderness. Mucous membranes pink and moist. No oral lesions noted. NECK: Trachea midline. Supple and not tender, no meningeal signs CARDIOVASCULAR: Regular rate and rhythm. No murmurs, rubs or gallops heard RESPIRATORY: Clear to auscultation. Breath sounds equal bilaterally. No rales , wheezing or rhonchi ABDOMEN: Soft, non-tender, nondistended. Bowel sounds present and normoactive. No guarding. No rebound. No organomegaly. EXTREMITIES: No clubbing, cyanosis, or edema.No joint effusion, has good ROM. No calf tenderness. Well perfused and warm. BACK: Dressing in the back, intact NEUROLOGICAL: Awake and alert. Cranial nerves grossly intact. Motor grossly within normal limits. PSYCHIATRIC: Normal affect, calm and cooperative. LINE: No evidence of infection Assessment & Plan Remarks IMPRESSION Sinus tract connects to the thoracic spine hardware, C/W infection - S/P removal of hardware; still with cables in place - prior C/S have been negative one done while she was on Abx, another one done off Abx; no C/S prior to start of any Abx - has been on Abx on and off for a while (clindamycin, Doxycyline) - usually due to GPC (Staph and Strep), ?unusual pathogen; ?C/S negative due to partial treatment of infection S/P debridement and removal of hardware and placement of some Abx beads RECOMMENDATION D/W Dr Sánchez Will Rx for most common pathogen, Staph and Strep AFB and fungal C/S can be followed as outpatient Will get PICC Arrange for home IV Abx Will refer patient to Dr Abdullahi for fup IV Vanco x 6 weeks - end date August 22 - labs weekly while on IV Abx Patient instructed to take probiotic while on IV Abx I filled out Abx form Explained plan to patient OK to D/C once arrangements made Raquel Wells MD Jul 15, 2017 11:56
[2017-07-15 12:01] VITALS: BP 104/53; PULSE 76; RESP 18; TEMP 98.2; O2SAT 97
--- NOTE | 2017-07-15 12:30 | PD.ORT.PN ---
Subjective Subjective Remarks Patient resting comfortably. States her pain is relatively well controlled. Objective Vitals Vital Signs Date Time Temp Pulse Resp B/P (MAP) Pulse Ox O2 Delivery O2 Flow Rate FiO2 07/15/17 12:01 98.2 76 18 104/53 (70) 97 07/15/17 08:00 98.1 65 18 96/54 (68) 98 07/15/17 00:00 98.5 62 18 102/59 (73) 98 07/14/17 18:35 97.7 68 15 105/56 (72) 98 07/14/17 16:00 98.2 76 19 123/55 (77) 100 I/O 07/14/17 07/14/17 07/14/17 07/15/17 07/15/17 07/15/17 07:00 15:00 23:00 07:00 15:00 23:00 Intake Total 480 ml 1000 ml 240 ml Balance 480 ml 1000 ml 240 ml Intake Oral 480 ml 1000 ml 240 ml # Voids 2 5 4 # Bowel Movements 0 0 Result Diagram: 07/13/17 0623 07/15/17 0225 Objective Remarks awake, alert, no acute distress Thoracic spine: Dressing in place without any significant drainage. Bilateral lower extremity is: 5 out of 5 strength throughout. Sensation intact. Brisk cap refill. Patient has been out of bed ambulating to the restroom Assessment & Plan Assessment and Plan 42-year-old female postop day 3 status post irrigation and debridement with removal of posterior thoracic hardware for infection 1. Encourage mobilization and out of bed as tolerated. Patient does not require bracing. Avoid significant bending, lifting or twisting 2. Intraoperative cultures negative so far. Infectious disease has been consulted. Recommendations for IV vancomycin for 4-6 weeks 3. Physical therapy for mobilization 4. Plan for discharge home once home IV vanco has been arranged. F/u as scheduled in my office. Will need f/u with Dr. Ross (ID) as well. Mary Sánchez MD Jul 15, 2017 12:30
[2017-07-15] MEDS ORDERED: OXYC1TAB63 PO (12:31)
[2017-07-15] MEDS ORDERED: CYCL10TA PO (12:31)
--- NOTE | 2017-07-15 12:35 | HHI.DS ---
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 Patient failed nonoperative management was found to have deep infected posterior thoracic hardware. Recommendation for irrigation and debridement with removal of posterior thoracic hardware. CBC/BMP: 07/13/17 0623 07/15/17 0225 Significant Findings Laboratory Tests Test 07/13/17 06:23 07/13/17 06:25 07/14/17 06:30 07/15/17 02:25 Total Protein 6.2 GM/DL (6.4-8.2) Albumin 2.8 GM/DL (3.4-5.0) C-Reactive Protein 0.74 MG/DL (0.00-0.30) Hospital Course On the day of admission, patient underwent irrigation and debridement with removal posterior thoracic hardware. Intraoperative cultures were taken. Postoperatively, patient was admitted to the orthopedic floor where her pain was managed with IV and by mouth pain medication. Gradually she was transitioned to a regular diet. Patient was mobilized as tolerated. Intraoperative cultures were followed although he continued to be negative. Recommendation for empiric antibiotic coverage with IV vancomycin for 4-6 weeks. Patient obtained a PICC line and was sent home once home antibiotics were arranged. Pt Condition on Discharge: Good Discharge Disposition: Discharge Home Discharge Instructions DIET: Follow Instructions for: As Tolerated, No Restrictions Activities you can perform: Regular-No Restrictions Activities to avoid: Lifting/Bending, Strenuous Activity Mary Sánchez MD Jul 15, 2017 12:35
--- NOTE | 2017-07-15 15:04 | RADRPT ---
EXAM DATE/TIME: 07/15/2017 14:45 [facility] COMPARISON: CT THORACIC SPINE W CONTRAST, June 13, 2017, 11:29. INDICATIONS : Post PICC line placement. MEDICAL HISTORY : None. SURGICAL HISTORY : Daniels bienvenido. ENCOUNTER: Initial ACUITY: 1 day PAIN SCORE: 0/10 LOCATION: Bilateral chest FINDINGS: A single AP erect portable view of the chest was obtained and demonstrates the patient status post me brando sternotomy. There is a right-sided PICC line which loops back upon itself in the region of the s uperior vena cava. The heart size is within normal limits. There are multiple small calcific appearin g structures along the thoracic spine region and left perihilar region. There are no infiltrates or e ffusions. There is mild to moderate scoliosis. CONCLUSION: 1. Right-sided PICC line which loops back upon itself in the superior vena cava. 2. Multiple small calcific appearing structures along the thoracic spine region and left perihilar re gion represent small calcified lymph nodes. Ismael Palma MD on July 15, 2017 at 14:59 Board Certified Radiologist. This report was verified electronically.
[2017-07-15 16:11] VITALS: BP 120/73; PULSE 90; RESP 17; TEMP 98.2; O2SAT 99
--- NOTE | 2017-07-15 17:11 | RADRPT ---
EXAM DATE/TIME: 07/15/2017 16:34 [facility] COMPARISON: CHEST SINGLE AP, July 15, 2017, 14:45. INDICATIONS : Reevaluate picc line placement. MEDICAL HISTORY : None. SURGICAL HISTORY : Thoracic spine surgery ENCOUNTER: Subsequent ACUITY: 4 - 6 days PAIN SCORE: 2/10 LOCATION: Bilateral chest FINDINGS: A single AP erect view of the chest was obtained and demonstrates repositioning of the PICC line with the tip projected over the superior vena cava. The previously noted loop is no longer present. There are no infiltrates or effusions. The patient is again noted to be status post median sternotomy. Mul tiple small calcifications are noted along the thoracic spine. There is a mild to moderate scoliosis. CONCLUSION: Repositioning of the right-sided PICC line. The previously noted loop is no longer pr esent. Ismael Palma MD on July 15, 2017 at 17:08 Board Certified Radiologist. This report was verified electronically.
[2017-07-16] MEDS ORDERED: PHARMACY ORDERED LAB ONE (09:45)
== END 2017-07-15 20:00 | disposition home or self-care (01) | DRG 516 ==
LOC: HSDC 08:44 → HSDI 16:10 → OBSVTOIN 17:11 → N06B 17:43
PROVIDERS: ADMIT Orthopaedic Surgery Orthopaedic Surgery of the Spine; ATTEND Orthopaedic Surgery Orthopaedic Surgery of the Spine
PROC: 3E0102A Introduction of Anti-Infective Envelope into Subcutaneous Tissue, Open Approach (ICD-10-PCS; 2017-07-12)
PROC: 0RP604Z Removal of Internal Fixation Device from Thoracic Vertebral Joint, Open Approach (ICD-10-PCS; principal; 2017-07-12 12:57)
PROC: 02HV33Z Insertion of Infusion Device into Superior Vena Cava, Percutaneous Approach (ICD-10-PCS; 2017-07-15)
DX: T84.63XA Infection and inflammatory reaction due to internal fixation device of spine, initial encounter (principal); L02.212 Cutaneous abscess of back [any part, except buttock and flank]; M41.124 Adolescent idiopathic scoliosis, thoracic region; F17.210 Nicotine dependence, cigarettes, uncomplicated; Z95.2 Presence of prosthetic heart valve
CPT/HCPCS: 36569; 71045; 72020; 76000; 76937; 80053; 80202; 82565; 85014; 85018; 85652; 86140; 87015; 87070; 87102; 87116; 87176; 87205; 87206; 94150; J0690; J1100; J1580; J2250; J2270; J2405; J2550; J2710; J3010; J3370; J7050; J7120